=== PATIENT | male | born 1955 | race Caucasian/White ===

== ENCOUNTER 2017-04-11 13:12 | Day surgery (SDC) | payer OTHER ==
[~2017-04-11 13:12] MED LIST: ACETAMINOPHEN WITH CODEINE 1 EACH TABLET PO PRN; MORPHINE SULFATE 2 MG/ML DISP.SYRIN IV PRN; OXYBUTYNIN CHLORIDE 5 MG TABLET PO PRN; RINGERS SOLUTION,LACTATED 1,000 ML IV PRN; ceFAZolin SODIUM 2 GM in DEXTROSE 5 % IN WATER 50 ML IV PRN; oxyCODONE HCL/ACETAMINOPHEN 1 TAB TABLET PO PRN
[2017-04-11] MEDS ORDERED: RINGERS SOLUTION,LACTATED 1,000 ML IV ONE ×2 (14:00→16:45)
[2017-04-11] MEDS ORDERED: BUPIVACAINE HCL 50 ML VIAL IJ ONE (14:25)
[2017-04-11] MEDS ORDERED: diphenhydrAMINE HCL 50 MG/ML VIAL IV PRN (15:38)
[2017-04-11] MEDS ORDERED: ONDANSETRON HCL/PF 2 MG/ML VIAL IV PRN (15:38)
[2017-04-11] MEDS ORDERED: NALOXONE HCL 0.4 MG/ML VIAL IV PRN (15:38)
[2017-04-11] MEDS ORDERED: PROMETHAZINE HCL 12.5 MG in DEXTROSE 5 % IN WATER 50 ML IV PRN ×2 (15:38)
[2017-04-11] MEDS ORDERED: HYDROmorphone HCL 2 MG/ML VIAL IV PRN (15:38)
[2017-04-11] MEDS ORDERED: HYDROmorphone HCL 4 MG/ML DISP.SYRIN IV ONE (15:40)
[2017-04-11] MEDS ORDERED: HYDROmorphone HCL 2 MG/ML VIAL IV ONE (16:00)
[2017-04-11 17:52] VITALS: BP 158/80
== END 2017-04-11 13:13 | disposition home or self-care (01) ==
LOC: AMB 13:12
PROVIDERS: ATTEND Urology
PROC: 0T7D7DZ Dilation of Urethra with Intraluminal Device, Via Natural or Artificial Opening (ICD-10-PCS; 2017-04-11)
PROC: 0T9B70Z Drainage of Bladder with Drainage Device, Via Natural or Artificial Opening (ICD-10-PCS; 2017-04-11)
PROC: 0VTTXZZ Resection of Prepuce, External Approach (ICD-10-PCS; principal; 2017-04-11 14:35)
DX: N48.0 Leukoplakia of penis (principal); N35.9 Urethral stricture, unspecified; E66.01 Morbid (severe) obesity due to excess calories; Z68.41 Body mass index [BMI] 40.0-44.9, adult; F17.200 Nicotine dependence, unspecified, uncomplicated
CPT/HCPCS: 53899; 54163; 88304; 88312; J2405